=== PATIENT | female | born 1950 | race Caucasian/White ===

== ENCOUNTER → 2020-08-10 10:41 | Outpatient (CLI) | payer MEDICARE, OTHER, SELFPAY ==
--- NOTE | ~2020-08-10 | MR_ITS ---
EXAMINATION: MR lumbar spine [facility] EXAM DATE: 08/10/2020 11:13 INDICATION: Other intervertebral disc degeneration, lumbar region disc degeneration TECHNIQUE: Multi-sequential, multiplanar MR images of the lumbar spine were obtained without contrast . Sagittal T1, T2, T2 fat saturation images. Axial T2 weighted images. Comparison is made to prior examination from 04/29/2011. FINDINGS: There is moderate disc disease L5-S1, mild at the other lumbar levels. Vertebral body heigh ts relatively well-maintained. The conus medullaris terminates at the mid L3 level and has normal sig nal intensity and morphology, slightly low lying, and also with a lipoma of the filum terminale. The vertebral bodies are aligned in the AP dimension. Level by level evaluation: T12-L1: Small right central disc protrusion. Facet arthropathy: Mild. Neural foraminal stenosis: No stenosis. Central canal stenosis: Mild. L1-L2: There is a minimal diffuse disc bulge. Facet arthropathy: Mild. Neural foraminal stenosis: No stenosis. Central canal stenosis: No stenosis. L2-L3: There is a mild diffuse disc bulge. Facet arthropathy: Mild to moderate. Neural foraminal stenosis: Mild bilateral. Central canal stenosis: No stenosis. L3-L4: There is a mild diffuse disc bulge. Facet arthropathy: Mild to moderate. Neural foraminal stenosis: Mild bilateral. Central canal stenosis: Mild. L4-L5: There is a mild to moderate diffuse disc bulge. Facet arthropathy: Mild to moderate. Neural foraminal stenosis: Mild to moderate bilateral. Central canal stenosis: Mild. L5-S1: There is a mild to moderate diffuse disc bulge. Facet arthropathy: Mild to moderate. Neural foraminal stenosis: Moderate left, mild to moderate right. Central canal stenosis: Mild. IMPRESSION: 1. 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 2. Mild to moderate lumbar spondylosis. Reviewed, dictated and finalized at location A. [employer] [employer]
== END ==
PROVIDERS: PCP Family Medicine; Visit Provider Nurse Practitioner Family
DX: M47.815 Spondylosis without myelopathy or radiculopathy, thoracolumbar region (principal); M47.817 Spondylosis without myelopathy or radiculopathy, lumbosacral region; M48.07 Spinal stenosis, lumbosacral region; M48.05 Spinal stenosis, thoracolumbar region
CPT/HCPCS: 72148

== ENCOUNTER 2022-02-18 11:48 | Outpatient (CLI) | payer MEDICARE, OTHER, SELFPAY ==
--- NOTE | 2022-02-19 12:35 | P.NEURO_ITS ---
Neurology EEG Report General Information Date of Study: 02/18/22 TEST EEG DIAGNOSIS syncopal episode CONDITION OF RECORDING awake and drowsy EEG NUMBER [id number] CLINICAL HISTORY patient reported she has lost consciousness twice within the last 2 months. No warning signs before and is fine afterwards. EEG DESCRIPTION basic resting occipital frequency consists of poorly organized low to medium voltage 11 to 13 hertz per 2nd alpha admixed with large amount of low-voltage 15 to 18 hertz per 2nd beta and multiple muscle artifacts. During drowsiness low- voltage beta activity seen diffusely admixed with waxing and waning poorly organized posterior alpha rhythm. Hyperventilation not done. Photic stimulation produced poor drive. Non paroxysmal. Nonfocal. Nonlateralizing. IMPRESSION No significant abnormalities noted
== END 2022-02-18 11:49 | disposition home or self-care (01) ==
LOC: ANHNEURO 11:51
PROVIDERS: PCP Family Medicine; Visit Provider Family Medicine
DX: R55 Syncope and collapse (principal)
CPT/HCPCS: 95816

== ENCOUNTER 2022-08-10 13:24 | Outpatient (CLI) | payer MEDICARE, OTHER, SELFPAY ==
[2022-08-10 14:03] LABS: Hematocrit 38.6 % (37.0-47.0); Hemoglobin 12.5 g/dL (12.0-15.0)
[2022-08-10 14:13] LABS: Anion Gap 9 mmol/L (8-16); Blood Urea Nitrogen 28 mg/dL (7-17); Calcium 9.7 mg/dL (8.4-10.2); Carbon Dioxide 29 mmol/L (22-30); Chloride 100 mmol/L (98-107); Estimated Glomerular Filt Rate 54; Glucose 85 mg/dL (65-110); Potassium 4.5 mmol/L (3.4-5.0); Sodium 138 mmol/L (137-145)
[2022-08-10 14:14] LABS: INR 1.1; Prothrombin Time 13.8 Seconds (11.1-14.7)
[2022-08-10 14:15] LABS: Partial Thromboplastin Time 31.8 SECONDS (22.3-36.8)
== END 2022-08-10 13:25 | disposition home or self-care (01) ==
LOC: ANHSURGERY 13:32
PROVIDERS: Anesthesiology; PCP Family Medicine; Visit Provider Otolaryngology
DX: N18.9 Chronic kidney disease, unspecified (principal); D64.9 Anemia, unspecified; Z01.818 Encounter for other preprocedural examination
CPT/HCPCS: 36415; 80048; 85014; 85018; 85610; 85730

== ENCOUNTER 2022-08-15 00:26 | Day surgery (SDC) | payer MEDICARE, OTHER, SELFPAY ==
[2022-08-03 11:24] VITALS: BMI 35.1
--- NOTE | 2022-08-03 11:26 | PC.NURSE ---
Report to the Outpatient Waiting Room, entrance under the green pavilion located off [facility], at time _9:00AM on date ___08/15/22____. Planned Procedure Time: __11:00AM . Time changes happen often and if your time is changed the preop area will call you the afternoon before. - You and your visitor will be asked to self-screen and do not enter if you have any COVID symptoms. - We encourage only one visitor and NO visitors under age 16 are allowed at this time. Your visitor will receive communication by the phone number that is given day of service. - The patient visitor is requested to social distance or may leave the building when not with patient due to restrictions. - A mask is required within the hospital. Patients may have clear liquids (water, carbonated beverages, clear teas, apple juice) until 3 hours prior to surgery with a maximum of 20 ounces. - No food from midnight until time of surgery Take the following medications with a SIP of water the morning of surgery: ___FLOVENT INHALER, ALBUTEROL INHALER NEEDED, GABAPENTIN, DOXYCYCLINE Medications to discontinue per physician ___HOLD ALL VITAMINS/SUPPLEMENTS 3 DAYS PRE-OP Date to take last dose___08/11/22 Please no make-up, nail syriac, hairspray, perfume, deodorant, or body powder the day of surgery. No jewelry (including any body piercings) or valuables the day of surgery, leave them at home. Please take a shower or bath the night before, or the morning of, surgery with an antibacterial soap. Wear comfortable, loose fitting clothing. Children are encouraged to wear pajamas. - Jewelry must be removed prior to entering the operating room. Rings and piercings that are not removed may be cut off. - The hospital will not accept responsibility for valuables. - Please leave all valuables, including medications, at home the day of surgery. If you are going home after surgery, a licensed pile driver operator helper must drive you home. - NO public transportation without another adult. - We recommend that an adult stay with you for 24 hours following discharge. - We also recommend that you do not drive, make important decision, drink alcoholic beverages, or take any drugs that were not prescribed by your health care provider for at least 24 hours after your discharge time. Follow any additional instructions given to you from your surgeon. If you or anyone in your household have experienced Covid symptoms in the past week, please notify your surgeon or the nurse liaison at the phone number below for possible testing. Telephone instructions given to _PATIENT and asked if any additional questions and then verbalized understanding. Patient advised to call surgeon office or pre surgery nurse liaison [phone] if any additional questions.
--- NOTE | 2022-08-12 16:02 | WPDANESEPPF ---
Anes - Initial Pre Proc Eval Procedure: Operation Date: 08/15/22 09:00 Proposed Procedures p Direct Laryngoscopy, Biopsy Left Vocal Cord Lesion - Russell Sousa MD Date/Time: 08/12/22 16:02 Surgeon: Russell Sousa MD Pre Op Diagnosis: vocal cord nodule Patient Data Age: 71 Gender: F Height: 1.6 m Weight: 90 kg Allergies Allergy/AdvReac Type Severity Reaction Status Date / Time Sulfa (Sulfonamide Allergy Rash Verified 08/15/22 07:35 Antibiotics) Home Medications Medication Instructions Recorded Confirmed Type albuterol (refill) 90 90 mcg inhalation Q4-6H PRN Dyspnea 08/03/22 08/15/22 History mcg/actuation aerosol inhaler ascorbic acid (vitamin C) 1,000 mg 1 g PO DAILY 08/03/22 08/15/22 History tablet calcium 600 mg capsule 1,200 mg PO DAILY 08/03/22 08/15/22 History cholecalciferol (vitamin D3) 1,250 1,250 mcg PO WEEKLY 08/03/22 08/15/22 History mcg (50,000 unit) capsule codeine 10 mg-guaifenesin 100 mg/5 5 ml PO HS PRN Cough 08/03/22 08/15/22 History mL oral liquid cyanocobalamin (vitamin B-12) 1,000 mcg PO 3XW 08/03/22 08/15/22 History 1,000 mcg tablet dexamethasone 0.5 mg/5 mL oral 0.5 mg PO BID 08/03/22 08/15/22 History elixir diphenhydramine HCl 25 mg capsule 25 mg PO HS 08/03/22 08/15/22 History (Benadryl) doxycycline monohydrate 100 mg 100 mg PO BID 08/03/22 08/15/22 History capsule ferrous sulfate 324 mg (65 mg 324 mg PO DAILY 08/03/22 08/15/22 History iron) tablet,delayed release fluticasone propionate 220 2 puff inhalation Q12H 08/03/22 08/15/22 History mcg/actuation HFA aerosol inhaler (Flovent HFA) fluticasone propionate 50 2 spray intranasal QAM 08/03/22 08/15/22 History mcg/actuation nasal spray,suspension gabapentin 300 mg capsule 300 mg PO QID 08/03/22 08/15/22 History hydroxychloroquine 200 mg tablet 200 mg PO BID 08/03/22 08/15/22 History (Plaquenil) leucovorin calcium 5 mg tablet 30 mg PO WEEKLY 08/03/22 08/15/22 History methotrexate sodium 25 mg/mL 25 mg subcut WEEKLY 08/03/22 08/15/22 History injection solution montelukast 10 mg tablet 10 mg PO HS 08/03/22 08/15/22 History (Singulair) Patient hx anesthesia problems: none Family hx anesthesia problems: none Results Review: All pre-operative results and documents have been reviewed as part of the pre-operative evaluation. [facility] Past Medical History Medical History (Updated 08/12/22 @ 16:03 by Germán Owens MD) Asthma CKD (chronic kidney disease) stage 3, GFR 30-59 ml/min Osteoarthritis Social History Social History Smoking status: Never smoker Second hand tobacco smoke exposure: Yes (PARENTS) Alcohol intake: current Substance use: never Living arrangements: with family Additional living arrangements comments: [facility]USB Spiritual care concerns: No Anes - Eval Final PreProcedure Day of Procedure 08/12/22 16:02 Patient weight: obese Heart: regular rate and rhythm Lungs: clear to auscultation and normal air movement Airway: Mallampati scale class II Neurological: alert and oriented Last oral intake: >/= 8 hours ASA classification: III Emergent: no Anesthetic plan: proceed Anesthesia type and monitoring: general ETT Results Review: All pre-operative results and documents have been reviewed as part of the pre-operative evaluation. Informed Consent: The patient's anesthetic plan and its attendant risks and benefits were discussed with the patient/family/POA. Questions were solicited and answers provided to the satisfaction of the patient/family/POA.
[2022-08-15] VITALS (8 sets, daily range): BP systolic 134–191; BP diastolic 73–90; PULSE 58–93; RESP 14–20; TEMP 36.4; O2SAT 94–100
[2022-08-15] MEDS: LACTATED RINGERS 1,000 ML 30 ML IV CONT (08:06)
--- NOTE | 2022-08-15 09:19 | PM.IMHP ---
H&P: HPI History of Present Illness Date/Time: 08/15/22 09:19 Chief Complaint: hoarse voice Narrative: for last 4 months Review of Systems Review of Systems: All systems reviewed & are unremarkable except as noted in HPI and below PMFSH Past Medical History Medical History Asthma CKD (chronic kidney disease) stage 3, GFR 30-59 ml/min Osteoarthritis Social History Social History Smoking status: Never smoker Second hand tobacco smoke exposure: Yes (PARENTS) Alcohol intake: current Substance use: never Living arrangements: with family Additional living arrangements comments: [facility]USB Spiritual care concerns: No Meds Home Medications and Allergies Home Medications Medication Instructions Recorded Confirmed Type albuterol (refill) 90 90 mcg inhalation Q4-6H PRN Dyspnea 08/03/22 08/15/22 History mcg/actuation aerosol inhaler ascorbic acid (vitamin C) 1,000 mg 1 g PO DAILY 08/03/22 08/15/22 History tablet calcium 600 mg capsule 1,200 mg PO DAILY 08/03/22 08/15/22 History cholecalciferol (vitamin D3) 1,250 1,250 mcg PO WEEKLY 08/03/22 08/15/22 History mcg (50,000 unit) capsule codeine 10 mg-guaifenesin 100 mg/5 5 ml PO HS PRN Cough 08/03/22 08/15/22 History mL oral liquid cyanocobalamin (vitamin B-12) 1,000 mcg PO 3XW 08/03/22 08/15/22 History 1,000 mcg tablet dexamethasone 0.5 mg/5 mL oral 0.5 mg PO BID 08/03/22 08/15/22 History elixir diphenhydramine HCl 25 mg capsule 25 mg PO HS 08/03/22 08/15/22 History (Benadryl) doxycycline monohydrate 100 mg 100 mg PO BID 08/03/22 08/15/22 History capsule ferrous sulfate 324 mg (65 mg 324 mg PO DAILY 08/03/22 08/15/22 History iron) tablet,delayed release fluticasone propionate 220 2 puff inhalation Q12H 08/03/22 08/15/22 History mcg/actuation HFA aerosol inhaler (Flovent HFA) fluticasone propionate 50 2 spray intranasal QAM 08/03/22 08/15/22 History mcg/actuation nasal spray,suspension gabapentin 300 mg capsule 300 mg PO QID 08/03/22 08/15/22 History hydroxychloroquine 200 mg tablet 200 mg PO BID 08/03/22 08/15/22 History (Plaquenil) leucovorin calcium 5 mg tablet 30 mg PO WEEKLY 08/03/22 08/15/22 History methotrexate sodium 25 mg/mL 25 mg subcut WEEKLY 08/03/22 08/15/22 History injection solution montelukast 10 mg tablet 10 mg PO HS 08/03/22 08/15/22 History (Singulair) Allergies Allergy/AdvReac Type Severity Reaction Status Date / Time Sulfa (Sulfonamide Allergy Rash Verified 08/15/22 07:35 Antibiotics) Vital Signs Vital Signs - 24 hr 08/15/22 08:05 Temperature 36.4 C Pulse Rate 63 Respiratory Rate 16 Blood Pressure 134/73 Pulse Oximetry 100 Oxygen Delivery Room Air Exam Narrative: laryngoscopy showed left vocal fold nodule. Not resolved on medical management. Assessment and Plan Assessment and plan (1) Vocal cord nodule: Code(s): J38.2 - Nodules of vocal cords Status: Acute Plan Liane has a left vocal fold nodule, not resolved after medical management,here for direct laryngoscopy with biopsy. r/b/a reviewed, pt understand and agrees to proceed.
--- NOTE | 2022-08-15 09:21 | WPDHPUPDATE1 ---
History and Physical Update Update Date/Time: 08/15/22 09:21 History and Physical has been reviewed, including an updated exam of the patient. There are NO changes in the patient's condition. Risks, benefits, and alternatives have been discussed and questions answered. Patient agrees to proceed with procedure.
[2022-08-15] MEDS: OXYMETAZOLINE HCL 0.05% NAS 15 ML BTL (*BKC) 1 SPRAY XX (09:47)
--- NOTE | 2022-08-15 09:57 | W.PM.PROC2 ---
Procedure Note - Detailed Date of Procedure 08/15/22 Pre-op Diagnosis vocal cord nodule Post-op Diagnosis Same Procedure Performed direct laryngoscopy with biopsy, endoscopic assisted Surgeon Russell Sousa MD Anesthesia General Indications left vocal fold nodule Findings small mucosal left vocal fold nodule, did not extend deep into the muscularis. Fully excised. Description of Procedure On the date of surgery, the patient was identified in the preoperative holding area. All questions answered, consent signed and verified and they agreed to proceed. They were then brought to the OR and placed under general endotracheal anesthesia with a 6.5 sized endotracheal tube. A shoulder roll was placed. Timeout was performed verifying the correct patient identity and procedure to be performed which they were. The patient was then draped in standard fashion for direct laryngoscopy with biopsy. The bed was rotated 90 degrees counter-clockwise and a dental guard was placed to protect the upper teeth. A laryngoscope was then advanced in the oral cavity and upper airway to visualize all subsites of the oral cavity, oropharynx, hypopharynx and larynx. The only lesions noted were on the larynx. The patient was then suspended from the toure stand. Under endoscopic visualization, left small vocal nodule was noted on the vocal folds. Photos taken. Using biopsy forceps, these lesions were removed with minimal damage to the healthy laryngeal mucosa. Minimal bleeding occurred and did not require significant intervention for hemostasis. With all specimen removed, the procedure was concluded. The laryngoscope was removed, the dental guard removed, and the oral cavity was examined showing no injury to lips, gums, teeth or tongue. Care of the patient was returned to anesthesia who extubated the patient and transferred to the PACU for recovery in stable condition without complication. Estimated Blood Loss 0 Drains No Packing No Pathology Yes Complications No immediate complications Condition Stable
== END 2022-08-15 11:50 | disposition home or self-care (01) ==
PROVIDERS: PCP Family Medicine; Visit Provider Otolaryngology
PROC: 0CJS8ZZ Inspection of Larynx, Via Natural or Artificial Opening Endoscopic (ICD-10-PCS; CPT 31540; principal; 2022-08-15 09:00)
DX: J38.1 Polyp of vocal cord and larynx (principal); B48.8 Other specified mycoses; J45.909 Unspecified asthma, uncomplicated; N18.30 Chronic kidney disease, stage 3 unspecified; E66.9 Obesity, unspecified; Z68.35 Body mass index [BMI] 35.0-35.9, adult; Z79.51 Long term (current) use of inhaled steroids
CPT/HCPCS: 31540; 88305; 88313; A9270; J1100; J2250; J2405; J2704; J3010; J7120

== ENCOUNTER 2023-06-07 12:33 | Outpatient (CLI) | payer MEDICARE, OTHER, SELFPAY ==
--- NOTE | 2023-06-07 15:12 | WPDPFTINT ---
PFT Procedure Performed PFT Procedure Performed Spirometry with Pre/Post Bronchodilator Diffusing Cap (DLCO) Flow Vol Loop PFT Interpretation Lung volumes were not measured because of claustrophobia. Spirometry showed borderline normal FVC, normal FEV 1 and a normal FEV1 to FVC ratio of 83%. Following administration of a bronchodilator there was no significant change in the expiratory flow rates. Lung diffusion capacity is within the normal range at 71% predicted. The flow-volume loop is unremarkable. Impression: Probable normal spirometry. Lung diffusion capacity within normal range as well.
--- NOTE | 2023-06-07 15:15 | WPDSIXMINUTE ---
Six Minute Walk Procedure Procedure Performed Pulmonary Stress Test (6 min walk) Six Minute Walk Six Minute Walk: This 6 minute walk test was carried out with the patient breathing ambient air. The baseline pre-walk oxyhemoglobin saturation was 99%. The patient walked 305 m with no stops during testing. During the walk the oxyhemoglobin saturation remained near 100%. Impression: No evidence of oxyhemoglobin desaturation on this testing.
== END 2023-06-07 12:34 | disposition home or self-care (01) ==
LOC: ANHPFT 12:33
PROVIDERS: PCP Family Medicine; Visit Provider Internal Medicine Pulmonary Disease
DX: R91.8 Other nonspecific abnormal finding of lung field (principal)
CPT/HCPCS: 71250; 94060; 94618; 94729

== ENCOUNTER 2023-06-07 12:34 | Outpatient (CLI) | payer MEDICARE, OTHER, SELFPAY ==
--- NOTE | ~2023-06-07 | CT_ITS ---
EXAMINATION: CT diagnostic chest wo con DATE: 06/07/2023 14:08 INDICATION: Other nonspecific abnormal finding of the lung field TECHNIQUE: Computed tomography (CT) of the chest was performed without intravenous contrast. The dose -length product (DLP) was 236.48 mGy-cm. Automated exposure control and iterative reconstruction tech nique were employed. COMPARISON: None FINDINGS: There are minimal groundglass opacities of the lungs with a lower lung zone distribution. T here are a few scattered groundglass nodules of the lungs which measure up to 7 mm. No pleural effusi on or pneumothorax. Calcified pulmonary nodules and calcified right hilar lymph nodes are consistent with old granulomatous disease. The heart size is normal. There are no pathologically enlarged thorac ic lymph nodes. There is a 2.0 cm low density mass of the left adrenal gland, consistent with an howie slick. There are bridging osteophytes at multiple levels in the spine, consistent with diffuse idiopath ic skeletal hyperostosis (DISH). IMPRESSION: 1. Groundglass opacities of the lungs in a lower lung zone distribution and scattered groundglass nod ules of the lungs. Differential includes atelectasis, pneumonia, interstitial lung disease, or possib ly pulmonary manifestations of rheumatoid arthritis. Comparison with any prior available imaging is r ecommended. Reviewed, dictated and finalized at location F. IMPRESSION: 1. Groundglass opacities of the lungs in a lower lung zone distribution and sca ttered groundglass nodules of the lungs. Differential includes atelectasis, pne umonia, interstitial lung disease, or possibly pulmonary manifestations of rheu matoid arthritis. Comparison with any prior available imaging is recommended.
== END 2023-06-07 12:35 | disposition home or self-care (01) ==
LOC: ANHIMG 12:36
PROVIDERS: PCP Family Medicine; Visit Provider Internal Medicine Pulmonary Disease
DX: R91.8 Other nonspecific abnormal finding of lung field (principal)
CPT/HCPCS: 71250

== ENCOUNTER 2023-10-30 00:31 | Day surgery (SDC) | payer MEDICARE, OTHER, SELFPAY ==
[2023-10-06 15:27] VITALS: BMI 36.1
--- NOTE | 2023-10-27 08:23 | SUR.PREOP ---
Patient called regarding upcoming procedure. Reviewed preop instructions, appointment times, and procedure prep.
--- NOTE | 2023-10-27 15:34 | PM.HPGS ---
History of Present Illness History of Present Illness Consent: Risks, benefits, and alternatives have been discussed and questions answered. Patient agrees to proceed with procedure. Chief complaint: diarrhea Narrative: Liane Myers is a 72 year old female Was referred for colonoscopy due to ongoing diarrhea. She has had this on and off in the past but it has been quite severe over the past 4 weeks. Typically, every time she eats she has to run to the bathroom and has loose stools. She has not been traveling has not recently been on antibiotics. Review of Systems Review of Systems: All systems reviewed & are unremarkable except as noted in HPI and below PMFSH Past Medical History Medical History Asthma CKD (chronic kidney disease) stage 3, GFR 30-59 ml/min Osteoarthritis Social History Social History Smoking status: Never smoker Second hand tobacco smoke exposure: Yes (PARENTS) Alcohol intake: current Substance use: never Living arrangements: with family Additional living arrangements comments: [facility]USB Spiritual care concerns: No Meds Home Medications and Allergies Home Medications Medication Instructions Recorded Confirmed Type albuterol (refill) 90 90 mcg inhalation Q4-6H PRN Dyspnea 08/03/22 10/06/23 History mcg/actuation aerosol inhaler ascorbic acid (vitamin C) 1,000 mg 1 g PO DAILY 08/03/22 10/06/23 History tablet cyanocobalamin (vitamin B-12) 1,000 mcg PO 3XW 08/03/22 10/06/23 History 1,000 mcg tablet diphenhydramine HCl 25 mg capsule 25 mg PO HS 08/03/22 10/06/23 History (Benadryl) gabapentin 300 mg capsule 300 mg PO QID 08/03/22 10/06/23 History hydroxychloroquine 200 mg tablet 200 mg PO BID 08/03/22 10/06/23 History (Plaquenil) leucovorin calcium 5 mg tablet 30 mg PO WEEKLY 08/03/22 10/06/23 History montelukast 10 mg tablet 10 mg PO HS 08/03/22 10/06/23 History (Singulair) cholecalciferol (vitamin D3) 1,250 1,250 mcg PO .biweekly 05/10/23 10/06/23 History mcg (50,000 unit) capsule alendronate 70 mg tablet (Fosamax) 70 mg PO WEEKLY 07/26/23 10/06/23 History aspirin 81 mg capsule 81 mg PO DAILY 07/26/23 10/06/23 History fluticasone propionate 220 2 puff inhalation DAILY 07/26/23 10/06/23 History mcg/actuation HFA aerosol inhaler (Flovent HFA) methotrexate sodium 25 mg/mL 10 mg subcut WEEKLY 07/26/23 10/06/23 History injection solution Allergies Allergy/AdvReac Type Severity Reaction Status Date / Time Sulfa (Sulfonamide Allergy Rash Verified 10/30/23 12:23 Antibiotics) Exam Resp: Auscultation: clear to auscultation bilaterally Cardio: Rate: regular rate Rhythm: regular rhythm GI: GI Palp: Yes Soft to palpation and No Tenderness to palpation present (GI) Assessment and Plan Assessment and plan (1) Chronic diarrhea: Code(s): K52.9 - Noninfective gastroenteritis and colitis, unspecified Status: Acute Assessment and Plan: Colonoscopy with possible biopsy or polypectomy or cautery or injection of substances.
[2023-10-30 12:25] VITALS: BP 155/78; PULSE 70; RESP 18; TEMP 36.6; O2SAT 100
--- NOTE | 2023-10-30 12:43 | WPDANESEPPF ---
Anes - Initial Pre Proc Eval Procedure: Operation Date: 10/30/23 13:30 Proposed Procedures p Colonoscopy - Kurt Otero MD Date/Time: 10/30/23 12:43 Surgeon: Kurt Otero MD Pre Op Diagnosis: diarrhea Patient Data Age: 72 Gender: F Height: 1.63 m Weight: 99.9 kg Last Vital Signs Temp 97.9 F 10/30/23 12:25 Pulse 70 10/30/23 12:25 Resp 18 10/30/23 12:25 BP 155/78 H 10/30/23 12:25 Pulse Ox 100 10/30/23 12:25 O2 Del Method Room Air 10/30/23 12:25 Allergies Allergy/AdvReac Type Severity Reaction Status Date / Time Sulfa (Sulfonamide Allergy Rash Verified 10/30/23 12:23 Antibiotics) Home Medications Medication Instructions Recorded Confirmed Type albuterol (refill) 90 90 mcg inhalation Q4-6H PRN Dyspnea 08/03/22 10/06/23 History mcg/actuation aerosol inhaler ascorbic acid (vitamin C) 1,000 mg 1 g PO DAILY 08/03/22 10/06/23 History tablet cyanocobalamin (vitamin B-12) 1,000 mcg PO 3XW 08/03/22 10/06/23 History 1,000 mcg tablet diphenhydramine HCl 25 mg capsule 25 mg PO HS 08/03/22 10/06/23 History (Benadryl) gabapentin 300 mg capsule 300 mg PO QID 08/03/22 10/06/23 History hydroxychloroquine 200 mg tablet 200 mg PO BID 08/03/22 10/06/23 History (Plaquenil) leucovorin calcium 5 mg tablet 30 mg PO WEEKLY 08/03/22 10/06/23 History montelukast 10 mg tablet 10 mg PO HS 08/03/22 10/06/23 History (Singulair) cholecalciferol (vitamin D3) 1,250 1,250 mcg PO .biweekly 05/10/23 10/06/23 History mcg (50,000 unit) capsule alendronate 70 mg tablet (Fosamax) 70 mg PO WEEKLY 07/26/23 10/06/23 History aspirin 81 mg capsule 81 mg PO DAILY 07/26/23 10/06/23 History fluticasone propionate 220 2 puff inhalation DAILY 07/26/23 10/06/23 History mcg/actuation HFA aerosol inhaler (Flovent HFA) methotrexate sodium 25 mg/mL 10 mg subcut WEEKLY 07/26/23 10/06/23 History injection solution Patient hx anesthesia problems: none Family hx anesthesia problems: none Results Review: All pre-operative results and documents have been reviewed as part of the pre-operative evaluation. [facility] Past Medical History Medical History Asthma CKD (chronic kidney disease) stage 3, GFR 30-59 ml/min Osteoarthritis Social History Social History Smoking status: Never smoker Second hand tobacco smoke exposure: Yes (PARENTS) Alcohol intake: current Substance use: never Living arrangements: with family Additional living arrangements comments: [facility] Spiritual care concerns: No Anes - Eval Final PreProcedure Day of Procedure 10/30/23 12:43 Patient weight: obese Heart: regular rate and rhythm Lungs: clear to auscultation Airway: Mallampati scale class II Neurological: alert and oriented Last oral intake: >/= 8 hours ASA classification: III Emergent: no Anesthetic plan: proceed Anesthesia type and monitoring: general GIVS and standard monitoring Results Review: All pre-operative results and documents have been reviewed as part of the pre-operative evaluation. Informed Consent: The patient's anesthetic plan and its attendant risks and benefits were discussed with the patient/family/POA. Questions were solicited and answers provided to the satisfaction of the patient/family/POA.
[2023-10-30] MEDS: LACTATED RINGERS 1,000 ML 150 ML IV CONT (12:46)
[2023-10-30 13:08] VITALS: BP 97/51; PULSE 70; RESP 18; O2SAT 100
[2023-10-30 13:18] VITALS: BP 111/55; PULSE 66; RESP 18; O2SAT 100
[2023-10-30 13:28] VITALS: BP 131/75; PULSE 68; RESP 18; O2SAT 100
== END 2023-10-30 13:46 | disposition home or self-care (01) ==
PROVIDERS: PCP Family Medicine; Visit Provider Internal Medicine Gastroenterology
PROC: 0DJD8ZZ Inspection of Lower Intestinal Tract, Via Natural or Artificial Opening Endoscopic (ICD-10-PCS; CPT 45378; principal; 2023-10-30 13:30)
DX: K52.9 Noninfective gastroenteritis and colitis, unspecified (principal); J45.909 Unspecified asthma, uncomplicated; N18.30 Chronic kidney disease, stage 3 unspecified; E66.9 Obesity, unspecified; Z68.37 Body mass index [BMI] 37.0-37.9, adult; Z79.51 Long term (current) use of inhaled steroids; Z79.82 Long term (current) use of aspirin
CPT/HCPCS: 45380; 88305; J2704; J7120

== ENCOUNTER 2023-12-20 12:45 | Outpatient (CLI) | payer MEDICARE, OTHER, SELFPAY ==
--- NOTE | ~2023-12-20 | CT_ITS ---
EXAMINATION:CT diagnostic chest wo con DATE: 12/20/2023 14:30 INDICATION: Other nonspecific abnormal finding in lung field. TECHNIQUE: Computed tomography (CT) of the chest was performed without intravenous contrast. Automate d exposure control and iterative reconstruction technique were employed. The dose-length product (DLP ) was 412.76 mGy-cm. COMPARISON: Chest CT 06/07/2023 FINDINGS: There is mild emphysema. Calcified bilateral lung nodules and calcified right hilar lymph n odes are consistent with old granulomatous disease. There are a few stable scattered subcentimeter gr oundglass nodules in the lungs. There is a 3 mm nodule in right upper lobe. No pleural effusion. The heart size is normal. No pericardial effusion. There is a 2.0 cm mass in left adrenal gland measuring soft tissue attenuation without change in size, likely an adenoma. There are cysts in left kidney me asuring up to 14 mm. There are bridging endplate osteophytes at multiple levels in the spine, consist ent with diffuse idiopathic skeletal hyperostosis (DISH). There is mild chronic anterior wedging of m ultiple thoracic vertebral bodies. There is severe spondylosis at T4-T5 and mild spondylosis at other levels. IMPRESSION: 1. Small lung nodules, likely benign. 2. Mild emphysema. Reviewed, dictated and finalized at location A.
--- NOTE | 2023-12-23 21:12 | WPDPFTINT ---
PFT Procedure Performed PFT Procedure Performed Spirometry with Pre/Post Bronchodilator Diffusing Cap (DLCO) PFT Interpretation DOS: 12/20/2023 REQUESTING: Dick Villalba MD REASON FOR TESTING: Asthma, abnormal chest CT PULMONARY FUNCTION TESTS As of December 22, 2022, the [employer] reference equations are used in interpretation of spirometry, lung volumes and diffusing capacity. Race and ethnicity are not included as variables in the interpretation strategy. Spirometry: The pre-bronchodilator FEV1 is 1.85 L, 89% predicted, normal. The pre-bronchodilator FVC is 2.22 L, 82% predicted, normal. The FEV1/FVC ratio is 83%. After bronchodilator, the FEV1 is 1.86 L, 90%, 1% increase. The FVC is 2.14 L, 79%, decrease 3%. The FEV1/FVC ratio is 87%, normal. No lung volumes obtained. Diffusion: DLCO is 15.2, 76%, normal. DLCO/VA is 4.65, 111%, normal. Flow volume loop: Normal. IMPRESSION: This study shows normal spirometry without response to bronchodilator and normal diffusion. Compared to a prior study on June 07, 2023, the values are similar. At that time, the patient was not ablle to perform lung volumes due to claustrophobia. Diffusion was similar. Maria Del Carmen Squires MD
--- NOTE | 2023-12-23 21:21 | WPDSIXMINUTE ---
Six Minute Walk Procedure Procedure Performed Pulmonary Stress Test (6 min walk) Six Minute Walk Six Minute Walk: DOS:? 12/20/2023 REQUESTING:? Dick Villalba MD REASON FOR TESTING:? Asthma, abnormal chest CT SIX MINUTE WALK This test was conducted per ATS protocol. The patient was breathing room air during the testing. The initial saturation was 97%, initial heart rate was 85 beats per minute. The patient walked for 6 minutes, did not stop to rest. At the end of testing saturation was 95% and pulse was 102 beats per minute. Distance walked was 1200 ft/365.7 m, adequate for age. On a prior study 06/07/2023 the patient walked a total distance of 305 m, her current distance walked is 60 m greater which is significant. Impression: No evidence of oxyhemoglobin desaturation on this testing. Distance walked is 60 meters greater compared to 06/07/2023.
== END 2023-12-20 12:46 | disposition home or self-care (01) ==
LOC: ANHIMG 12:47
PROVIDERS: PCP Family Medicine; Visit Provider Internal Medicine Pulmonary Disease
DX: R91.8 Other nonspecific abnormal finding of lung field (principal); J43.9 Emphysema, unspecified; J40 Bronchitis, not specified as acute or chronic; Z72.0 Tobacco use
CPT/HCPCS: 71250; 94060; 94729

== ENCOUNTER 2024-08-14 11:39 | Outpatient (CLI) | payer MEDICARE, OTHER, SELFPAY ==
--- NOTE | 2024-08-14 12:51 | ECG_ITS ---
Test Date: 2024-08-14 13:15:30 Measurements Intervals [place] Rate: 62 P: 20 SD: 140 QRS: -44 QRSD: 126 T: 3 QT: 414 QTc: 421 Interpretive Statements SINUS RHYTHM LEFT AXIS DEVIATION INTRAVENTRICULAR CONDUCTION DELAY LEFT VENTRICULAR HYPERTROPHY MINIMAL Q WAVES- HIGH LATERAL LEADS POOR R WAVE PROGRESSION BORDERLINE T WAVE ABNORMALITY- ANT/INF LEADS BASELINE ARTIFACT- I, II, III, AVR, AVL, AVF, V1-V6 BORDERLINE ECG No previous ECG available for comparison Electronically Signed On 08-14-2024 13:25:14 [employer] by Randall Mccallum D.O.
[2024-08-14 13:37] LABS: Basophils Percent Auto 0.2 % (0.2-1.2); Eosinophils Absolute Auto 0.1 K/mm3 (0-0.3); Eosinophils Percent Auto 1.2 % (0-4.4); Hematocrit 34.5 % (37.0-47.0); Hemoglobin 11.4 g/dL (12.0-15.0); Lymphocytes Percent Auto 47.6 % (18.3-44.2); Mean Corpuscular Volume 105.8 fl (80-100); Mean Platelet Volume 10.8 fl (7.4-10.4); Monocytes Absolute Auto 0.5 K/mm3 (0.1-0.6); Monocytes Percent Auto 7.9 % (2.6-8.5); Neutrophils Absolute Auto 2.4 K/mm3 (1.3-6.7); Neutrophils Percent Auto 43.1 % (45.5-73.1); Platelet Count Result 206 k/mm3 (150-375); Red Blood Count 3.26 M/mm3 (4.2-5.4); Red Cell Distribution Width 13.2 % (11.5-14.5); White Blood Count 5.7 K/mm3 (4.5-10.0)
[2024-08-14 13:49] LABS: Albumin Level 4.2 g/dL (3.5-5.1); Anion Gap 7 mmol/L (4-12); Blood Urea Nitrogen 21 mg/dL (7-17); Calcium 9.8 mg/dL (8.4-10.2); Carbon Dioxide 31 mmol/L (22-30); Chloride 100 mmol/L (98-107); Estimated Glomerular Filt Rate 54; Glucose 87 mg/dL (65-110); INR 1.1; Potassium 4.2 mmol/L (3.4-5.0); Prothrombin Time 14.2 Seconds (11.1-14.7); Sodium 138 mmol/L (137-145)
[2024-08-14 13:50] LABS: Partial Thromboplastin Time 30.6 Seconds (22.3-36.8)
[2024-08-14 14:04] LABS: Urine Cotinine NEGATIVE
[2024-08-14 14:07] LABS: Platelet Estimate Adequate (Adequate); Schistocytes None Seen
[2024-08-14 14:08] LABS: Macrocytosis 1+ (NORMAL)
[2024-08-14 19:30] LABS: Hemoglobin A1C 5.3 % (<5.7)
== END 2024-08-14 11:40 | disposition home or self-care (01) ==
LOC: ANHSURGERY 11:52
PROVIDERS: Anesthesiology; PCP Family Medicine; Visit Provider Orthopaedic Surgery
DX: M06.9 Rheumatoid arthritis, unspecified (principal); N18.30 Chronic kidney disease, stage 3 unspecified; Z01.818 Encounter for other preprocedural examination; I45.9 Conduction disorder, unspecified
CPT/HCPCS: 36415; 80048; 80307; 82040; 83036; 85025; 85610; 85730; 87081; 93005